=== PATIENT | male | born 1950 | race Caucasian/White ===

== ENCOUNTER 2018-12-20 04:11 | Emergency (ER) | payer MEDICARE, OTHER ==
[~2018-12-20] VITALS: Ht 177.8 cm; Wt 70.3 kg
[~2018-12-20 04:11] MED LIST: HYDR-1189 PO
[2018-12-20 04:44] VITALS: BP_SYST 112
[2018-12-20] MEDS ORDERED: NACL 0.9% 1,000 ML IV ONE (05:00)
[2018-12-20] MEDS ORDERED: CLINDAMYCIN 900 mg/50mL D5W 50 ML IV ONE (05:15)
[2018-12-20 05:45] LABS: BASOPHILS % (AUTO) 0.5 % (0.0-2.0); EOSINOPHILS # (AUTO) 0.4 K/uL (0.0-0.4); EOSINOPHILS % (AUTO) 6.1 % (0.0-4.0); HEMATOCRIT 37.4 % (36-54); HEMOGLOBIN 12.9 g/dL (14.0-18.0); LYMPHOCYTES # (AUTO) 0.6 K/uL (1.0-5.5); LYMPHOCYTES % (AUTO) 9.5 % (20.5-51.5); MEAN CORPUSCULAR HEMOGLOBIN 34 pg (27-31); MEAN CORPUSCULAR HGB CONC 35 % (32-36); MEAN CORPUSCULAR VOLUME 98 fL (79.0-98.0); MONOCYTES # (AUTO) 0.5 K/uL (0.0-1.0); MONOCYTES % (AUTO) 7.9 % (1.7-9.3); NEUTROPHILS # (AUTO) 4.4 K/uL (1.8-7.7); PLATELET COUNT (AUTO) 228 K/uL (130-430); RED BLOOD CELL COUNT(AUTO) 3.83 MIL/uL (4.2-6.2); WHITE BLOOD COUNT (AUTO) 5.8 K/uL (4.8-10.8)
[2018-12-20 06:03] LABS: CALCIUM 9.5 mg/dL (8.4-11.0); CREATININE 0.88 mg/dL (0.55-1.30); POTASSIUM 4.1 mmol/L (3.5-5.1)
[2018-12-20 06:07] LABS: PROTHROMBIN TIME 10.2 SECS (9.5-12.5)
[2018-12-20 06:09] LABS: ALBUMIN 2.6 g/dL (3.4-4.8)
[2018-12-20 06:39] VITALS: BP_SYST 112
== END 2018-12-20 06:39 | disposition home or self-care (01) ==
LOC: SED 04:11
DX: L03.311 Cellulitis of abdominal wall (principal); Z90.89 Acquired absence of other organs
CPT/HCPCS: 36415; 71045; 74176; 80053; 83605; 85025; 85610; 85730; 87040; 96365; 99284; J3490; J7030